=== PATIENT | male | born 1950 | race Caucasian/White ===

== ENCOUNTER 2020-01-27 15:12 | Emergency (ER) | payer MEDICARE, OTHER ==
[2020-01-27] MEDS ORDERED: Sodium Chloride 0.9% 1,000 ML IV ONE (15:30)
--- NOTE | 2020-01-27 15:45 | CR ---
[id number] RAD/RAD Chest PA or AP 1V EXAM: FRONTAL CHEST INDICATION: CHEST PAIN. COMPARISON: None. DISCUSSION: Apparent chronic history deformity of the right shoulder. The lungs are clear. The heart is normal in size. IMPRESSION: 1. No acute cardiopulmonary findings. Jose Borrego MD 01/27/20 [id number] Thank you for allowing us to participate in the care of your patient.
[2020-01-27 15:58] LABS: ANION GAP 15.6 mmol/L (5-15); CHLORIDE,CL 107 mmol/L (98-115); SODIUM,NA 142 mmol/L (136-145)
--- NOTE | 2020-01-27 16:17 | EDM.PDOC ---
ED HPI GENERAL MEDICAL PROBLEM - General Chief Complaint: Chest Pain Stated Complaint: CHEST PAIN Time Seen by Provider: 01/27/20 15:12 Source of Information: Reports: Patient, Significant Other History Limitations: Reports: No Limitations - History of Present Illness INITIAL COMMENTS - FREE TEXT/NARRATIVE: Patient [facility] from [facility] with chest pain (left chest pressure) that started at 1330 today while he was working in the yard. He also has a vague ache in anterior neck. No pain in shoulder or arms. This feels similar to the chest pain he had 5-6 years ago when he ended up getting 3 stents. No known history of MO. He is on Plavix and daily aspirin. He had 324 mg chewable aspirin and one SL Nitro in [place] before he came here in his vehicle with his driving. The [place] provider called me. She sent EKG from today and 2015 which both show an incomplete RBBB. 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, Nitroglycerin Left Chest Pain Score (Numeric/FACES): 2 - Related Data Allergies Allergy/AdvReac Type Severity Reaction Status Date / Time No Known Drug Allergies Allergy Cannot Verified 01/27/20 15:25 Remember Home Meds: Home Meds Aspirin [Halfprin] 81 mg PO BEDTIME 01/27/20 [History] Cholecalciferol (Vitamin D3) [Vitamin D3] 1,000 unit PO DAILY 01/27/20 [History] Clopidogrel Bisulfate [Plavix] 75 mg PO DAILY 01/27/20 [History] Fluticasone Propionate [Flonase] 1 spray NASBOTH BID 01/27/20 [History] Gabapentin [Neurontin] 400 mg PO BEDTIME 01/27/20 [History] Naproxen Sodium [Aleve] 440 mg PO BID PRN 01/27/20 [History] Nitroglycerin 0.4 mg SL ASDIRECTED PRN 01/27/20 [History] Terazosin [Hytrin] 10 mg PO BEDTIME 01/27/20 [History] Vitamin B Complex 1 cap PO DAILY 01/27/20 [History] atorvaSTATin Calcium [Atorvastatin Calcium] 40 mg PO BEDTIME 01/27/20 [History] metFORMIN HCl [Metformin HCl ER] 500 mg PO DAILY 01/27/20 [History] traZODone HCl [Trazodone HCl] 100 mg PO BEDTIME 01/27/20 [History] ED ROS GENERAL - Review of Systems Review Of Systems: See Below Constitutional: Denies: Fever, Chills, Malaise, Weakness, Diaphoresis HEENT: Denies: Ear Pain, Throat Pain, Vision Change Respiratory: Denies: Shortness of Breath, Cough Cardiovascular: Reports: Chest Pain, Lightheadedness. Denies: Syncope Endocrine: Denies: Fatigue GI/Abdominal: Denies: Abdominal Pain, Constipation, Diarrhea, Vomiting : Denies: Dysuria Musculoskeletal: Reports: Neck Pain (see HPI). Denies: Shoulder Pain, Arm Pain, Back Pain, Hand Pain Skin: Denies: Cyanosis, Jaundice, Mottled, Pallor, Diaphoresis Neurological: Denies: Confusion, Dizziness, Headache, Seizure, Syncope, Trouble Speaking, Difficulty Walking Psychiatric: Denies: Agitation, Anxiety, Confusion ED EXAM, GENERAL - Physical Exam Exam: See Below Exam Limited By: No Limitations General Appearance: Alert, WD/WN, No Apparent Distress Eye Exam: Bilateral Eye: EOMI, Normal Inspection, PERRL Ears: Normal External Exam, Hearing Grossly Normal Nose: Normal Inspection, No Blood Throat/Mouth: Normal Inspection, Normal Lips, Normal Voice, No Airway Compromise Head: Atraumatic, Normocephalic Neck: Normal Inspection, Supple, Non-Tender, Full Range of Motion. No: Carotid Bruit Respiratory/Chest: No Respiratory Distress, Lungs Clear, Normal Breath Sounds, No Accessory Muscle Use, Chest Non-Tender Cardiovascular: Normal Peripheral Pulses, Regular Rate, Rhythm, No Edema, No Gallop, No JVD, No Murmur, No Rub Peripheral Pulses: 2+: Carotid (L), Carotid (R), Radial (L), Radial (R), Posterior Tibial (L), Posterior Tibial (R) GI/Abdominal: Normal Bowel Sounds, Soft, Non-Tender, No Organomegaly, No Distention, No Abnormal Bruit Back Exam: Normal Inspection, Full Range of Motion. No: CVA Tenderness (L), CVA Tenderness (R) Extremities: Normal Inspection, Normal Range of Motion, Non-Tender, No Pedal Edema Neurological: Alert, Oriented, Normal Cognition, No Motor/Sensory Deficits Psychiatric: Normal Affect, Normal Mood Skin Exam: Warm, Dry, Intact, Normal Color, No Rash Course - Vital Signs Last Recorded V/S: Last Vital Signs Temp 97 F 01/27/20 15:16 Pulse 69 01/27/20 15:16 Resp 16 01/27/20 15:16 BP 98/59 L 01/27/20 15:16 Pulse Ox 97 01/27/20 15:16 - Orders/Labs/Meds Orders: Active Orders 24 hr Category Date Time Status EKG Documentation Completion [RC] ASDIRECTED Care 01/27/20 15:30 Active EKG 12 Lead [EK] Stat Ther 01/27/20 15:30 Ordered Labs: Laboratory Tests 01/27/20 01/27/20 01/27/20 Range/Units 15:16 15:16 15:16 WBC 7.64 (5.00-10.00) 10^3/uL RBC 4.49 L (4.50-6.00) 10^6/uL Hgb 14.3 (13.0-17.0) g/dL Hct 42.4 (40.0-52.0) % MCV 94.4 H (82.0-92.0) fL MCH 31.8 H (27.0-31.0) pg MCHC 33.7 (32.0-36.0) g/dL RDW 12.6 (11.5-14.5) % Plt Count 178 (150-400) 10^3/uL MPV 11.5 H (7.4-10.4) fL Immature Gran % (Auto) 0.3 (0.0-5.0) % Neut % (Auto) 67.6 (50.0-70.0) % Lymph % (Auto) 24.1 (20.0-40.0) % Hopkins % (Auto) 4.8 (2.0-8.0) % Eos % (Auto) 2.5 (1.0-3.0) % Baso % (Auto) 0.7 (0.0-1.0) % Neut # (Auto) 5.17 (2.50-7.00) 10^3/uL Lymph # (Auto) 1.84 (1.00-4.00) 10^3/uL Hopkins # (Auto) 0.37 (0.10-0.80) 10^3/uL Eos # (Auto) 0.19 (0.10-0.30) 10^3/uL Baso # (Auto) 0.05 (0.00-0.10) 10^3/uL Immature Gran # (Auto) 0.02 (0.00-0.50) 10^3/uL Sodium 142 (136-145) mmol/L Potassium 4.2 (3.3-5.3) mmol/L Chloride 107 (98-115) mmol/L Carbon Dioxide 23.6 (21.0-32.0) mmol/L Anion Gap 15.6 H (5-15) mmol/L BUN 26 H (6-25) mg/dL Creatinine 0.99 (0.51-1.17) mg/dL Est Cr Clr Drug Dosing 63.55 mL/min Estimated GFR (MDRD) > 60 mL/min Glucose 116 H (75 - 99) mg/dL Calcium 8.8 (8.7-10.3) mg/dL Troponin I 0.04 (0.00-0.070) ng/mL Meds: Medications Discontinued Medications Generic Name Dose Route Start Last Admin Trade Name Freq PRN Reason Stop Dose Admin Sodium Chloride 1,000 mls @ 999 mls/hr 01/27/20 15:30 01/27/20 15:33 Normal Saline IV 01/27/20 16:30 999 mls/hr .BOLUS ONE Administration - Re-Assessments/Exams Free Text/Narrative Re-Assessment/Exam: 01/27/20 16:12 EKG shows no acute changes. Trop is 0.04. Patient says pain was 1-2 on arrival but is now 0/10. No meds have been given here, just the aspirin and nitro at clinic. We started IV NS to boost BP before trying nitro but now is pain-free. Waiting for call back from [facility] where he had his stents. EKG faxed to them. Pt says he is scheduled to see them in about 3-4 weeks for routine followup. 01/27/20 16:30 Dr. Ceballos (cardiology) called back and we discussed case. He recommends we transfer now rather than wait for a second troponin with his history of known CAD. Feels he will need a cardiac stress test at the least. 01/27/20 16:34 Dr. Johnson (hospitalist) called back and after discussion of case, accepted for transfer. [facility] informed me that there will be a little wait but they will call with availability HARINI. Patient is stable and I discussed findings and treatment plan with him. Departure - Departure Time of Disposition: 16:49 Disposition: DC/Tfer to Acute Hospital 02 Reason for Transfer *Q: Primary PCI Indicated (depending on second troponin and cardiology) Condition: Good Clinical Impression: Chest pain due to CAD Referrals: PCP,None [Ordering Only Provider] - Forms: ED Department Discharge Sepsis Event Note (ED) - Evaluation Sepsis Screening Result: No Definite Risk - Focused Exam Vital Signs: Vital Signs Temp Pulse Resp BP Pulse Ox 01/27/20 15:16 97 F 69 16 98/59 L 97 - My Orders Last 24 Hours: My Active Orders 01/27/20 15:30 EKG Documentation Completion [RC] ASDIRECTED EKG 12 Lead [EK] Stat - Assessment/Plan Last 24 Hours: My Active Orders 01/27/20 15:30 EKG Documentation Completion [RC] ASDIRECTED EKG 12 Lead [EK] Stat
== END 2020-01-27 17:40 ==
LOC: KA.ED 15:12
DX: I25.10 Atherosclerotic heart disease of native coronary artery without angina pectoris (principal); Z79.899 Other long term (current) drug therapy; Z79.02 Long term (current) use of antithrombotics/antiplatelets
CPT/HCPCS: 36415; 71045; 80048; 84484; 85025; 93005; 99285; J7030; 99284